=== PATIENT | female | born 1980 | race Caucasian/White ===

== ENCOUNTER → 2016-10-25 | Outpatient (CLI) | payer BC ==
--- NOTE | 2016-10-26 09:07 | MG ---
HISTORY: Right and left breast full of lumps, history of fiber cystic disease. Bilateral diagnostic mammogram Comparison: None available FINDINGS: Bilateral CC and MLO projections of the right and left breast were obtained. Scattered fibroglandul ar tissue is seen to be present. Within the retroareolar region of the right breast approximately 6 cm in depth a focal density is noted with nodular characteristics. Spot compression views demonstra te persistence of this nodular density. Ultrasound will be performed for complete characterization. The left breast does not demonstrate focal mass, architectural distortion, or clustered microcalcifi cations to suggest malignancy. No skin thickening or nipple retraction is appreciated. No patholo gical lymphadenopathy can be identified. IMPRESSION: Focal nodular density within the retroareolar region of the right breast approximately 6 cm in depth. Continued evaluation with ultrasound will be needed for complete characterization. Right breast ultrasound: Multiple grayscale and color flow Doppler images of the right breast were obtained. In the 1 o'clock position approximately 5 cm in depth a well-defined predominately hypoechoic lesion is noted measur ing 6 mm x 14 mm. The finding does correspond to the mammographic abnormality and consistent with a benign intraparenchymal cyst or fibroadenoma. Impression: Hypoechoic lesion corresponding mammographic abnormality note is reassuring benignity. Continued cynthia luation in 6 months to ensure stability is recommended. ACR CATEGORY: 3 - likely benign findings Followup diagnostic right mammogram and ultrasound in 6 months to ensure stability. Diagnostic CAD was utilized and reviewed. * 0 (ZERO) - ASSESSMENT INCOMPLETE; ADDITIONAL IMAGING IS NEEDED. * 1/1 (ONE) - NEGATIVE. * 2/II (TWO) - BENIGN FINDINGS. * 3/III (THREE) - PROBABLY BENIGN FINDING; SHORT INTERVAL FOLLOW-UP SUGGESTED. * 4/IV (FOUR) - SUSPICIOUS ABNORMALITY; BIOPSY SHOULD BE CONSIDERED. * 5/V - HIGHLY SUSPICIOUS OF MALIGNANCY; BIOPSY SHOULD BE PERFORMED. A NEGATIVE X-RAY REPORT SHOULD NOT DELAY BIOPSY IF A DOMINANT OR CLINICALLY SUSPICIOUS MASS IS PRESENT; 4 TO 8 PERCENT OF CANCERS ARE NOT IDENTIFIED BY X-RAY. A NEG ATIVE REPORT MAY REINFORCE THE CLINICAL IMPRESSION. ADENOSIS AND DENSE BREASTS MAY OBSCURE AN UNDER LYING NEOPLASM. Reported By:
== END ==
LOC: RAD 13:01
PROVIDERS: ATTEND Nurse Practitioner
DX: N63 Unspecified lump in breast (principal)
CPT/HCPCS: 76642; 77066